=== PATIENT | female | born 1970 | race Caucasian/White ===

== ENCOUNTER 2020-07-15 14:12 | Emergency (ER) | payer BC ==
[2020-07-15] MEDS ORDERED: fentaNYL 100 MCG/2 ML SDV IVPUSH ONE ×2 (14:40→18:41)
[2020-07-15 14:54] LABS: ANION GAP 12.6 mmol/L (10-20); CHLORIDE,CL 103 mmol/L (98-107); SODIUM,NA 138 mmol/L (136-145)
--- NOTE | 2020-07-15 15:19 | CR ---
[id number] RAD/RAD Femur Left 2V EXAM: 5 VIEWS LEFT FEMUR. INDICATION: HORSE FELL ON HER. COMPARISON: None. DISCUSSION: No fracture, dislocation or other acute osseous abnormality. IMPRESSION: 1. No acute osseous abnormalities. Mingo Espinosa DO 07/15/20 1518 Thank you for allowing us to participate in the care of your patient.
--- NOTE | 2020-07-15 15:20 | CR ---
[id number] RAD/RAD Pelvis 1-2V EXAM: SINGLE VIEW PELVIS. INDICATION: HORSE FELL ON HER. COMPARISON: None. DISCUSSION: No fracture, dislocation or other acute osseous abnormality. IMPRESSION: 1. No acute osseous abnormalities. Mingo Espinosa DO 07/15/20 1519 Thank you for allowing us to participate in the care of your patient.
--- NOTE | 2020-07-15 15:43 | CT ---
[id number] CT/CT Cervical Spine WO IV Exam: CT Cervical Spine WO IV CLINICAL DATA: TRAUMA. COMPARISON: None. FINDINGS: No fracture or subluxation is seen. The C1-C2 articulation is unremarkable. The prevertebral soft tissues are within normal limits. Mild multilevel spondylosis most pronounced at C5-C6 IMPRESSION: NO ACUTE FRACTURE OR SUBLUXATION. Mingo Espinosa DO 07/15/20 1543 Thank you for allowing us to participate in the care of your patient.
--- NOTE | 2020-07-15 15:54 | CT ---
[id number] CT/CT Head WO IV EXAM: CT Head WO IV CLINICAL DATA: HORSE FELL ON HER. COMPARISON STUDY: None FINDINGS: No intracranial hemorrhage, extra-axial fluid collection, mass, or acute ischemia. Generalized parenchymal atrophy with scattered areas of nonspecific white matter disease, commonly seen as sequela of chronic microvascular ischemia. Soft tissues are unremarkable. Paranasal sinuses and mastoid air cells are clear. IMPRESSION: No acute intracranial findings. Mingo Espinosa DO 07/15/20 1553 Thank you for allowing us to participate in the care of your patient.
--- NOTE | 2020-07-15 16:13 | EDM.PDOC ---
ED HPI GENERAL MEDICAL PROBLEM - General Time Seen by Provider: 07/15/20 14:15 Source of Information: Reports: Patient, EMS, EMS Notes Reviewed, Family, RN, RN Notes Reviewed History Limitations: Reports: No Limitations - History of Present Illness INITIAL COMMENTS - FREE TEXT/NARRATIVE: Presents to ER per [facility] ambulance service after being bucked off/falling off a horse. Patient states the horse fell backwards onto her and the backside of the saddle hit her in the left side of the leg. Patient states she did not hit her head, no loss of consciousness. Patient complains of pain in the left femur area. Is alert and oriented upon arrival, no obvious deformity. There is no shortening or rotation of the left leg. Patient does have a c-collar on upon arrival to the ER. Abrasion and ecchymosis to the left anterior/inner femur. No open wounds no bleeding. Is able to wiggle toes, CMS intact. Vital signs are stable. Patient was given fentanyl 100 mcg as well as Dilaudid 1 mg in route per ambulance service. Patient states she had a physical last year, states she has not had a history of anemia, but states when the last few times she had tried to give blood, she was told her blood level was low. Patient states anytime she tries to move the leg or bend at the waist she gets a sharp shooting pain down the left leg. Denies any back pain. GCS upon arrival = 15 GCS at 1 hour = 15 Onset: Today, Sudden - Related Data Allergies Allergy/AdvReac Type Severity Reaction Status Date / Time No Known Allergies Allergy Verified 07/15/20 18:11 Review of Systems - Review of Systems Review Of Systems: Comprehensive ROS is negative, except as noted in HPI. ED EXAM, GENERAL - Physical Exam Exam: See Below Exam Limited By: Physical Impairment General Appearance: Alert, WD/WN, Moderate Distress Eye Exam: Bilateral Eye: EOMI, Normal Inspection Ears: Normal External Exam, Hearing Grossly Normal Nose: Normal Inspection Throat/Mouth: Normal Inspection, Normal Voice, No Airway Compromise Head: Atraumatic, Normocephalic Neck: Normal Inspection, Supple, Non-Tender, Full Range of Motion Respiratory/Chest: No Respiratory Distress, Lungs Clear, Normal Breath Sounds, No Accessory Muscle Use, Chest Non-Tender Cardiovascular: Normal Peripheral Pulses, Regular Rate, Rhythm, No Edema, No Gallop, No JVD, No Murmur, No Rub Peripheral Pulses: 2+: Radial (L), Radial (R), Dorsalis Pedis (L), Dorsalis Pedis (R) GI/Abdominal: Normal Bowel Sounds, Soft, Non-Tender (Female) Exam: Deferred Rectal (Female) Exam: Deferred Back Exam: Normal Inspection, Full Range of Motion Extremities: Leg Pain (left thigh), Limited Range of Motion (left leg), Other (Contusion left thigh) Neurological: Alert, Oriented, CN II-XII Intact, Normal Cognition Psychiatric: Normal Affect, Normal Mood Skin Exam: Warm, Dry, Intact, No Rash, Ecchymosis (left upper thigh) Lymphatic: No Adenopathy Course - Orders/Labs/Meds Orders: Active Orders 24 hr Category Date Time Status UA W/MICROSCOPIC [URIN] Stat Lab 07/15/20 14:28 Ordered Labs: Laboratory Tests 07/15/20 07/15/20 07/15/20 Range/Units 14:20 14:20 14:20 WBC 7.6 (4.0-10.0) x10^3/uL RBC 3.90 L (4.00-5.50) x10^6/uL Hgb 9.7 L (12.0-16.0) g/dL Hct 31.0 L (33.0-47.0) % MCV 79.5 (78.0-93.0) fL MCH 24.9 L (26.0-32.0) pg MCHC 31.3 L (32.0-36.0) g/dL RDW Coeff of Rebekah 14.0 (10.0-15.0) % Plt Count 328 (130-400) x10^3/uL Neut % (Auto) 74.5 (50.0-80.0) % Lymph % (Auto) 17.3 L (25.0-50.0) % Cherry % (Auto) 6.9 (2.0-11.0) % Eos % (Auto) 0.9 (0.0-4.0) % Baso % (Auto) 0.4 (0.2-1.2) % PT 10.3 (9.5-12.3) SEC INR 0.9 L (2.0-3.5) Sodium 138 (136-145) mmol/L Potassium 3.6 (3.5-5.1) mmol/L Chloride 103 (98-107) mmol/L Carbon Dioxide 26 (21-32) mmol/L Anion Gap 12.6 (10-20) mmol/L BUN 17 (7-18) mg/dL Creatinine 1.0 (0.55-1.02) mg/dL Est Cr Clr Drug Dosing TNP Estimated GFR (MDRD) 59 Glucose 92 (74-106) mg/dL Calcium 8.6 (8.5-10.1) mg/dL Corrected Calcium 8.76 (8.5-10.1) mg/dL Total Bilirubin 0.3 (0.2-1.0) mg/dL AST 18 (15-37) U/L ALT 18 (14-59) U/L Alkaline Phosphatase 68 (46-116) U/L Total Protein 7.1 (6.4-8.2) g/dL Albumin 3.8 (3.4-5.0) g/dL Globulin 3.3 Albumin/Globulin Ratio 1.15 Meds: Medications Discontinued Medications Generic Name Dose Route Start Last Admin Trade Name Freq PRN Reason Stop Dose Admin Hydrocodone Bitart/Acetaminophen 2 packet 07/15/20 18:53 Take Home: Acetam/Hydrocodon 325-5 Mg, 5 Pack PO 07/15/20 18:54 ONETIME ONE Fentanyl 100 mcg 07/15/20 14:40 Sublimaze IVPUSH 07/15/20 14:41 ONETIME ONE Fentanyl 100 mcg 07/15/20 18:41 07/15/20 18:46 Sublimaze IVPUSH 07/15/20 18:42 100 mcg ONETIME ONE Administration Ondansetron HCl 4 mg 07/15/20 19:01 Zofran IV 07/15/20 19:02 ONETIME ONE - Radiology Interpretation Free Text/Narrative:: Left femur x-ray: No acute osseous abnormalities Left hip/pelvis x-ray: No acute osseous abnormalities CT cervical spine without contrast: No acute fracture or subluxation CT head without contrast: No acute intracranial findings - Re-Assessments/Exams Free Text/Narrative Re-Assessment/Exam: 07/15/20 18:50 Discussed patient case with Dr. Kennedy who states he feels the injury is more likely to be contusion to the left thigh. He states patient can be discharged home with crutches and ice. States he would not recommend compression at this time, and states he may order a knee immobilizer just to keep the left leg from moving anymore than it has to. Patient continues to have a significant amount of pain with movement. 07/15/20 18:51 X-ray and lab findings discussed with patient and her . Informed them that I had discussed her case with Dr. Kennedy, Ortho at [facility]. Patient is highly encouraged to make an appointment to follow-up with primary care regarding the contusion to the left upper thigh as well as the hemoglobin of 9.7. Departure - Departure Time of Disposition: 19:07 Disposition: Home, Self-Care 01 Condition: Fair Clinical Impression: Contusion Qualifiers: Encounter type: initial encounter Contusion area: thigh Laterality: left Qualified Code(s): S70.12XA - Contusion of left thigh, initial encounter - Discharge Information *PRESCRIPTION DRUG MONITORING PROGRAM REVIEWED*: No *COPY OF PRESCRIPTION DRUG MONITORING REPORT IN PATIENT KRIS: No Instructions: Contusion, [id number] Referrals: Lor Alba PA-C [Primary Care Provider] - Forms: ED Department Discharge Additional Instructions: Make an appointment with primary care for lab recheck and recheck of the left leg Rest while at home with the left leg elevated Use ice as tolerated May use Tylenol and/or ibuprofen as directed for pain Rx: Hydrocodone 5/325 orally every 4 hours as needed for pain, may take 1 to 2 tablets - My Orders Last 24 Hours: My Active Orders 07/15/20 14:28 UA W/MICROSCOPIC [URIN] Stat - Assessment/Plan Last 24 Hours: My Active Orders 07/15/20 14:28 UA W/MICROSCOPIC [URIN] Stat
[2020-07-15] MEDS ORDERED: Take Home: Acetaminophen/HYDROcodone 325-5 MG, 5 Tab Pack PO ONE (18:53)
[2020-07-15] MEDS ORDERED: Ondansetron 4 MG/2 ML SDV IV ONE (19:01)
== END 2020-07-15 19:20 | disposition home or self-care (01) ==
LOC: VM.ED 14:12
DX: S70.12XA Contusion of left thigh, initial encounter (principal); V80.010A Animal-rider injured by fall from or being thrown from horse in noncollision accident, initial encounter
CPT/HCPCS: 36415; 70450; 72125; 72170; 80053; 85025; 85610; 96374; 96375; 96376; 99283; 99284-25; A9270-GY; J2405; J3010